=== PATIENT | female | born 2000 | race African-American/Black ===

== ENCOUNTER 2020-12-24 11:26 | Emergency (ER) | payer BC ==
[2020-12-24] MEDS ORDERED: HYDROmorphone 1 MG/ML Syringe IVPUSH ONE (11:43)
[2020-12-24] MEDS ORDERED: Sodium Chloride 0.9% 10 ML Syringe FLUSH PRN (11:43)
[2020-12-24] MEDS ORDERED: Lidocaine/EPINEPHrine/Tetracaine Soln 1 ML TOP ONE (11:55)
[2020-12-24] MEDS ORDERED: Lidocaine 1% with EPINEPHrine 1:100,000 10 ML MDV INJECT ONE (11:55)
--- NOTE | 2020-12-24 12:16 | EDM.PDOC ---
ED HPI GENERAL MEDICAL PROBLEM - General Chief Complaint: Skin Complaint Stated Complaint: MULTIPLE ABSCESSES IN ARM PIT Time Seen by Provider: 12/24/20 11:37 Source of Information: Reports: Patient History Limitations: Reports: No Limitations - History of Present Illness INITIAL COMMENTS - FREE TEXT/NARRATIVE: The patient presents with pain and swelling in the right axilla. This has been an issue before and she had to have some abscesses opened up. She feels she has another abscess. She has no fever or chills. She has sever pain with lifting her arm up. She has no other heal problems. 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 (see below) Other Treatments RIPSHEAR OPERATOR: hot showers Right Axillary Pain Score (Numeric/FACES): 10 - Related Data Allergies Allergy/AdvReac Type Severity Reaction Status Date / Time No Known Allergies Allergy Verified 12/24/20 11:43 Home Meds: Home Meds Hydrocodone/Acetaminophen [Hydrocodone-Acetamin 5-325 mg] 1 - 2 each PO Q6HR PRN #6 tablet 12/24/20 [Rx] cephALEXin [Keflex] 500 mg PO QID #40 cap 12/24/20 [Rx] Past Medical History - Past Health History Medical/Surgical History: Denies Medical/Surgical History Dermatologic History: Reports: Cellulitis Social & Family History - Family History Dermatologic: Reports: Other (See Below) Other Dermatologic Family History: reoccuring cellulitis - Tobacco Use Tobacco Use Status *Q: Never Tobacco User Second Hand Smoke Exposure: No - Caffeine Use Caffeine Use: Reports: Energy Drinks - Recreational Drug Use Recreational Drug Use: No ED ROS GENERAL - Review of Systems Review Of Systems: See Below Constitutional: Reports: No Symptoms HEENT: Reports: No Symptoms Respiratory: Reports: No Symptoms Cardiovascular: Reports: No Symptoms Endocrine: Reports: No Symptoms GI/Abdominal: Reports: No Symptoms : Reports: No Symptoms Musculoskeletal: Reports: Other (Abxcess to the rigth axilla) ED EXAM, SKIN/RASH Exam: See Below Exam Limited By: No Limitations General Appearance: Alert, No Apparent Distress Ears: Normal External Exam Nose: Normal Inspection Head: Atraumatic, Normocephalic Neck: Normal Inspection Respiratory/Chest: No Respiratory Distress, Lungs Clear, Normal Breath Sounds Cardiovascular: Regular Rate, Rhythm, No Edema, No Murmur GI/Abdominal: Soft, Non-Tender, No Organomegaly, No Mass Back Exam: Normal Inspection Extremities: Other (Edema and fluctuance to the right axilla and proximal arm. Good sensation and pulses distally.) ED SKIN PROCEDURES - I&D Site: Right axilla Skin Prep: Other (chlor prep) Local Anesthesia: Lidocaine: 1% with EPI (with LET) Local Anesthetic Volume: 2cc Area Incised With: 11 Blade Drainage: Purulent, Bloody, Large Amount Probed to Break Up Loculations: Yes Packed With: 1/2 in. Iodoform Complications: No Course - Vital Signs Last Recorded V/S: Last Vital Signs Temp 99.2 F 12/24/20 11:37 Pulse 103 H 12/24/20 11:37 Resp 18 12/24/20 11:37 BP 136/88 12/24/20 11:37 Pulse Ox 96 12/24/20 11:37 - Orders/Labs/Meds Orders: Active Orders 24 hr Category Date Time Status Peripheral IV Care [RC] . DIRECTED Care 12/24/20 11:43 Active Sodium Chloride 0.9% [Saline Flush] Med 12/24/20 11:43 Active 10 ml FLUSH ASDIRECTED PRN Peripheral IV Insertion Adult [OM.PC] Routine Oth 12/24/20 11:43 Ordered Medication Orders Sodium Chloride (Saline Flush) 10 ml FLUSH ASDIRECTED PRN PRN Reason: Keep Vein Open Last Admin: 12/24/20 12:08 Dose: 10 ml Documented by: ROSEANN Mejias: Medications Generic Name Dose Route Start Last Admin Trade Name Freq PRN Reason Stop Dose Admin Sodium Chloride 10 ml 12/24/20 11:43 12/24/20 12:08 Saline Flush FLUSH 10 ml ASDIRECTED PRN Administration Keep Vein Open Discontinued Medications Generic Name Dose Route Start Last Admin Trade Name Freq PRN Reason Stop Dose Admin Hydromorphone HCl 1 mg 12/24/20 11:43 12/24/20 12:04 Dilaudid IVPUSH 12/24/20 11:44 1 mg ONETIME ONE Administration Lidocaine/Epinephrine 10 ml 12/24/20 11:55 12/24/20 12:08 Xylocaine 1% With Epinephrine 1:100,000 INJECT 12/24/20 11:56 10 ml ONETIME ONE Administration Lidocaine/Tetracaine 1 ml 12/24/20 11:55 12/24/20 12:08 Let Soln TOP 12/24/20 11:56 1 ml ONETIME ONE Administration - Re-Assessments/Exams Free Text/Narrative Re-Assessment/Exam: 12/24/20 12:16 I ordered an IV saline lock and dilaudid 1mg IV. 12/24/20 13:01 I used LET and lidocaine with epinephrine to anaesthetise the wound and I drained it and got lots of purulent/bloody drainage. I then packed it. I will get her on some keflex and something for pain. Departure - Departure Time of Disposition: 13:10 Disposition: Home, Self-Care 01 Condition: Good Clinical Impression: Abscess of axilla, right, Hidradenitis suppurativa of right axilla - Discharge Information *PRESCRIPTION DRUG MONITORING PROGRAM REVIEWED*: No *COPY OF PRESCRIPTION DRUG MONITORING REPORT IN PATIENT JOSE: No Prescriptions: Hydrocodone/Acetaminophen [Hydrocodone-Acetamin 5-325 mg] 1 - 2 each PO Q6HR PRN #6 tablet PRN Reason: Pain cephALEXin [Keflex] 500 mg PO QID #40 cap Referrals: PCP,None [Primary Care Provider] - Comfort Greenberg MD [Physician] - 1 Week Forms: ED Department Discharge Additional Instructions: Take the keflex 4 times per day for 10 days. Take tylenol or motrin for pain. If that does not help, try the hydrocodone. Try to leave the packing in for 5 days. Follow up with Dr Greenberg next week to have it removed. If it falls out sooner that is fine. Clean the area with warm soapy water 2 times per day. Put warm compresses on the affected area 3 times per day for 5 days. Please return if you are worse. Sepsis Event Note (ED) - Evaluation Sepsis Screening Result: No Definite Risk - Focused Exam Vital Signs: Vital Signs Temp Pulse Resp BP Pulse Ox 12/24/20 11:37 99.2 F 103 H 18 136/88 96 - My Orders Last 24 Hours: My Active Orders 12/24/20 11:43 Peripheral IV Care [RC] . DIRECTED Sodium Chloride 0.9% [Saline Flush] 10 ml FLUSH ASDIRECTED PRN Peripheral IV Insertion Adult [OM.PC] Routine - Assessment/Plan Last 24 Hours: My Active Orders 12/24/20 11:43 Peripheral IV Care [RC] . DIRECTED Sodium Chloride 0.9% [Saline Flush] 10 ml FLUSH ASDIRECTED PRN Peripheral IV Insertion Adult [OM.PC] Routine
== END 2020-12-24 13:23 | disposition home or self-care (01) ==
LOC: JD.ED 11:26
DX: L02.411 Cutaneous abscess of right axilla (principal); L73.2 Hidradenitis suppurativa
CPT/HCPCS: 10061; 87075; 87076; 87077; 87181; 87186; 87205; 96374; 99283; J1170

== ENCOUNTER 2021-04-15 17:31 | Emergency (ER) | payer SELFPAY ==
[2021-04-15] MEDS ORDERED: Lidocaine/EPINEPHrine/Tetracaine Soln 1 ML TOP ONE (17:46)
[2021-04-15] MEDS ORDERED: Lidocaine 1% with EPINEPHrine 1:100,000 10 ML MDV INJECT ONE (17:46)
--- NOTE | 2021-04-15 18:36 | EDM.PDOC ---
ED HPI GENERAL MEDICAL PROBLEM - General Chief Complaint: Skin Complaint Stated Complaint: ABSCESS IN ARM PIT Time Seen by Provider: 04/15/21 17:38 Source of Information: Reports: Patient, RN Notes Reviewed History Limitations: Reports: No Limitations - History of Present Illness INITIAL COMMENTS - FREE TEXT/NARRATIVE: Patient is a 21-year-old female presenting to the emergency department with complaints of a painful abscess in her left armpit. She has a history of hidradenitis suppurativa and has required I&D of abscesses in the past. She reports that the swelling began about 4 days ago. It was significantly larger than it is today. She reports it has been draining purulent fluid. She feels that she may have been feverish but denies any chills, nausea, or vomiting. Vital signs in triage were found to be normal. Temperature 97 temporal, blood pulse 81, blood pressure 116/66, respiratory rate 16, oxygen 97% on room air. She has not followed up with a primary care provider since she was seen in December for a similar complaint. Left Axillary Pain Score (Numeric/FACES): 4 - Related Data Allergies Allergy/AdvReac Type Severity Reaction Status Date / Time No Known Allergies Allergy Verified 04/15/21 17:48 Home Meds: Home Meds cephALEXin [Cephalexin] 500 mg PO Q6H 10 Days #40 capsule 04/15/21 [Rx] Past Medical History - Past Health History Medical/Surgical History: Denies Medical/Surgical History Dermatologic History: Reports: Cellulitis Social & Family History - Family History Dermatologic: Reports: Other (See Below) Other Dermatologic Family History: reoccuring cellulitis - Tobacco Use Tobacco Use Status *Q: Never Tobacco User Second Hand Smoke Exposure: No - Caffeine Use Caffeine Use: Reports: Energy Drinks - Recreational Drug Use Recreational Drug Use: No ED ROS GENERAL - Review of Systems Review Of Systems: See Below Constitutional: Reports: No Symptoms. Denies: Fever, Chills HEENT: Reports: No Symptoms Respiratory: Reports: No Symptoms Cardiovascular: Reports: No Symptoms Endocrine: Reports: No Symptoms GI/Abdominal: Reports: No Symptoms. Denies: Nausea, Vomiting : Reports: No Symptoms Musculoskeletal: Reports: No Symptoms Skin: Reports: Other (painful bump in left axilla.) ED EXAM, SKIN/RASH Exam: See Below Exam Limited By: No Limitations General Appearance: Alert, WD/WN, No Apparent Distress Respiratory/Chest: No Respiratory Distress, Lungs Clear, Normal Breath Sounds, No Accessory Muscle Use, Chest Non-Tender Cardiovascular: Normal Peripheral Pulses, Regular Rate, Rhythm, No Edema, No Gallop, No JVD, No Murmur, No Rub Skin: Other (4 cm x 2 cm area of induration to the left armpit. There is a small open area which is draining purulent fluid.) ED SKIN PROCEDURES - I&D Site: left axilla Skin Prep: Providone-Iodine (Betadine) Local Anesthesia: Lidocaine: 1% with EPI Area Incised With: 11 Blade Drainage: Purulent Probed to Break Up Loculations: Yes Packed With: None Sterile Dressing: Other (ABD) Complications: No Progress/Comments: Very small amount of purulent fluid returned. Area did not require packing. Course - Vital Signs Last Recorded V/S: Last Vital Signs Temp 97 F 04/15/21 17:47 Pulse 81 04/15/21 17:47 Resp 16 04/15/21 17:47 BP 116/66 04/15/21 17:47 Pulse Ox 97 04/15/21 17:47 - Orders/Labs/Meds Meds: Medications Discontinued Medications Generic Name Dose Route Start Last Admin Trade Name Marty PRN Reason Stop Dose Admin Lidocaine/Epinephrine 10 ml 04/15/21 17:46 04/15/21 17:52 Lidocaine 1% With Epinephrine 1:100,000 10 Ml Mdv INJECT 04/15/21 17:47 10 ml ONETIME ONE Administration Lidocaine/Tetracaine 1 ml 04/15/21 17:46 04/15/21 17:52 Lidocaine/Epinephrine/Tetracaine Soln 1 Ml TOP 04/15/21 17:47 1 ml ONETIME ONE Administration - Re-Assessments/Exams Free Text/Narrative Re-Assessment/Exam: Patient is a 21-year-old female presenting to the ER with complaints of an abscess in her left armpit. On exam, there is a 4 cm x 2 cm area of induration. It is fairly firm and does have an open area draining a small amount of purulent fluid. She states it was quite a bit bigger than it is now. I have ordered let and lidocaine with epi and will plan to drain the area. 04/15/21 18:40 I&D was completed. Only a very small amount of purulent fluid was returned. I suspect fluid has already drained from the area given that it has been leaking fluid and she reports that it was significantly larger than it is now. We will start her on cephalexin. Recommend that she follow-up in the clinic towards the end of next week to have the area reevaluated to see if additional I&D is needed after antibiotic treatment. She is in agreement with this plan. Discharge instructions as documented. Departure - Departure Time of Disposition: 18:43 Disposition: Home, Self-Care 01 Condition: Good Clinical Impression: Hidradenitis suppurativa of right axilla - Discharge Information *PRESCRIPTION DRUG MONITORING PROGRAM REVIEWED*: No *COPY OF PRESCRIPTION DRUG MONITORING REPORT IN PATIENT JOSE: No Prescriptions: cephALEXin [Cephalexin] 500 mg PO Q6H 10 Days #40 capsule Instructions: Hidradenitis Suppurativa Referrals: Comfort Greenberg MD [Physician] - Forms: ED Department Discharge Additional Instructions: You were seen in the emergency department today for evaluation with regards to a painful, swollen area in your left axilla. A small amount of fluid was able to be drained from the area. Since there is an open area, I suspect that much of the fluid has already drained. You have been started on cephalexin which is an antibiotic. Take this medication as prescribed. Recommend applying a warm washcloth to the area numerous times daily. You may take ibuprofen 600 to 800 mg every 6 hours for discomfort. Follow-up in the clinic towards the end of next week to have the area reevaluated to see if would benefit from additional drainage at that time. A referral has been sent to Dr. Greenberg and the number to schedule with her as listed below. Return to ER for any new or worsening symptoms of concern. Sepsis Event Note (ED) - Evaluation Sepsis Screening Result: No Definite Risk
== END 2021-04-15 18:55 | disposition home or self-care (01) ==
LOC: JD.ED 17:31
DX: L73.2 Hidradenitis suppurativa (principal); L02.411 Cutaneous abscess of right axilla
CPT/HCPCS: 10060; 99283; 99283-25

== ENCOUNTER 2021-08-04 15:52 | Emergency (ER) | payer SELFPAY | END 2021-08-04 16:30 | disposition left against medical advice (07) | LOC: JD.ED 15:52 | DX: R06.02 Shortness of breath (principal); Z53.21 Procedure and treatment not carried out due to patient leaving prior to being seen by health care provider ==

== ENCOUNTER 2021-08-05 21:47 | Emergency (ER) | payer SELFPAY ==
--- NOTE | 2021-08-05 23:00 | EDM.PDOC ---
ED HPI GENERAL MEDICAL PROBLEM - General Chief Complaint: Respiratory Problem Stated Complaint: COVID+/CHEST PAIN/SOB Time Seen by Provider: 08/05/21 22:29 Source of Information: Reports: Patient History Limitations: Reports: No Limitations - History of Present Illness INITIAL COMMENTS - FREE TEXT/NARRATIVE: Ms Hollingsworth is a pleasant 21-year-old woman who states that she developed generalized body weakness, dyspnea, nausea, and vomiting on 07/28/2021. She tested positive for the SARS-CoV-2 virus on 07/30/2021, at the [place] walk-in clinic. She has been taking both acetaminophen and ibuprofen, which she states have not been helping. She now presents the ED stating that she has had a cough which induces both dyspnea and central chest pain, since 08/02/2021. The coughing sometimes induces her to vomit. She states that she feels dehydrated. No recent fever. The patient states that she has been checking her oxygen saturation at home, finding it to be 88 to 93%. Here in the ED, the patient is found to be tachycardic at 123 bpm, otherwise, she is hemodynamically stable, afebrile, saturating 93 to 94% on room air. Prior to last Saturday, the patient denies having a recent fever, chills, sore throat, ear pain, nasal or sinus congestion, cough, dyspnea, chest pain, palpitations, nausea, vomiting, constipation, diarrhea, abdominal pain, urinary symptoms, recent weight gain or weight loss, recent bloody bowel movements or black bowel movements, recent joint aches, headaches, or rashes. The patient does not have a PCP. She has not received a COVID vaccination and does not intend to. Middle Chest Pain Score (Numeric/FACES): 10 - Related Data Allergies Allergy/AdvReac Type Severity Reaction Status Date / Time No Known Allergies Allergy Verified 04/15/21 17:48 Home Meds: Home Meds . [No Known Home Meds] 08/05/21 [History] Past Medical History - Infectious Disease History Infectious Disease History: Reports: Novel Coronavirus (dx'd 07/30/2021) - Past Surgical History Female Surgical History: Reports: Section (x 1) Social & Family History - Tobacco Use Tobacco Use Status *Q: Never Tobacco User - Caffeine Use Caffeine Use: Reports: Soda, Tea - Alcohol Use Alcohol Use History: Yes Alcohol Use Frequency: Rarely - Recreational Drug Use Recreational Drug Use: No - Living Situation & Occupation Living situation: Reports: Single, with Family (Daughter) Occupation: Employed ([employer]) ED ROS GENERAL - Review of Systems Review Of Systems: Comprehensive ROS is negative, except as noted in HPI. ED EXAM, GENERAL - Physical Exam Exam: See Below Exam Limited By: No Limitations General Appearance: Alert, WD/WN, No Apparent Distress Eye Exam: Bilateral Eye: EOMI, Normal Inspection Ears: Normal External Exam, Hearing Grossly Normal Nose: Normal Inspection Throat/Mouth: Normal Inspection, Normal Lips, Normal Voice, No Airway Compromise Head: Atraumatic, Normocephalic Neck: Normal Inspection, Full Range of Motion Respiratory/Chest: No Respiratory Distress, Lungs Clear, Normal Breath Sounds, No Accessory Muscle Use. No: Decreased Breath Sounds, Crackles, Rhonchi, Whee zing, Stridor, Prolonged Expiration Cardiovascular: Normal Peripheral Pulses, No Edema, No Gallop, No JVD, No Murmur, No Rub, Tachycardia (regular) Peripheral Pulses: 3+: Radial (L), Radial (R) GI/Abdominal: Normal Bowel Sounds, Soft, Non-Tender, No Organomegaly, No Distention, No Abnormal Bruit, No Mass Back Exam: Normal Inspection, Full Range of Motion, NT Extremities: Normal Inspection, Normal Range of Motion, No Pedal Edema, Normal Capillary Refill Neurological: Alert, Oriented, Normal Cognition, No Motor/Sensory Deficits Psychiatric: Depressed Mood Skin Exam: Warm, Dry, Intact, Normal Color, No Rash Course - Vital Signs Last Recorded V/S: Last Vital Signs Temp 37.2 C 08/05/21 22:25 Pulse 123 H 08/05/21 22:25 Resp 20 08/05/21 22:25 BP 120/76 08/05/21 22:25 Pulse Ox 93 L 08/05/21 22:25 - Orders/Labs/Meds Labs: Laboratory Tests 08/05/21 08/05/21 Range/Units 23:25 23:25 WBC 4.59 (3.98-10.04) K/mm3 RBC 5.37 H (3.98-5.22) M/mm3 Hgb 15.1 (11.2-15.7) gm/dl Hct 46.1 H (34.1-44.9) % MCV 85.8 (79.4-94.8) fl MCH 28.1 (25.6-32.2) pg MCHC 32.8 (32.2-35.5) g/dl RDW Std Deviation 39.0 (36.4-46.3) fL Plt Count 152 L (182-369) K/mm3 MPV 11.0 (9.4-12.3) fl Neutrophils % (Manual) 82 H (40-60) % Band Neutrophils % 1 (0-10) % Lymphocytes % (Manual) 10 L (20-40) % Atypical Lymphs % 0 % Monocytes % (Manual) 7 (2-10) % Eosinophils % (Manual) 0 L (0.7-5.8) % Basophils % (Manual) 0 L (0.1-1.2) Platelet Estimate Decreased RBC Morph Comment Normal Sodium 136 (136-145) mEq/L Potassium 3.5 (3.5-5.1) mEq/L Chloride 99 (98-107) mEq/L Carbon Dioxide 24 (21-32) mEq/L Anion Gap 16.5 H (5-15) BUN 4 L (7-18) mg/dL Creatinine 0.8 (0.55-1.02) mg/dL Est Cr Clr Drug Dosing 91.24 mL/min Estimated GFR (MDRD) > 60 (>60) mL/min BUN/Creatinine Ratio 5.0 L (14-18) Glucose 104 H (70-99) mg/dL Calcium 8.3 L (8.5-10.1) mg/dL Magnesium 1.9 (1.8-2.4) mg/dL Total Bilirubin 0.4 (0.2-1.0) mg/dL AST 42 H (15-37) U/L ALT 62 H (14-59) U/L Alkaline Phosphatase 59 (46-116) U/L Total Protein 7.6 (6.4-8.2) g/dl Albumin 3.4 (3.4-5.0) g/dl Globulin 4.2 gm/dL Albumin/Globulin Ratio 0.8 L (1-2) Meds: Medications Discontinued Medications Generic Name Dose Route Start Last Admin Trade Name Freq PRN Reason Stop Dose Admin Diphenhydramine HCl 50 mg 08/05/21 23:05 Diphenhydramine 50 Mg/Ml Sdv IVPUSH ONETIME PRN hypersensitivity reaction Epinephrine HCl 0.3 mg 08/05/21 23:05 Epinephrine 1 Mg/Ml Sdv IM ONETIME PRN hypersensitivity reaction Famotidine 20 mg 08/05/21 23:05 Famotidine 20 Mg/2 Ml Sdv IVPUSH ONETIME PRN hypersensitivity reaction CASIRIVIMAB/IMDEVIMAB 10 ml/ 110 mls @ 220 mls/hr 08/05/21 23:05 08/05/21 23:56 Sodium Chloride IV 08/05/21 23:34 220 mls/hr ONETIME ONE Administration Sodium Chloride 1,000 mls @ 999 mls/hr 08/05/21 23:05 08/05/21 23:25 Normal Saline IV 08/06/21 00:05 999 mls/hr ONETIME ONE Administration Methylprednisolone Sodium Succinate 125 mg 08/05/21 23:05 Methylprednisolone Sodium Succinate 125 Mg/2 Ml Sdv IVPUSH ONETIME PRN hypersensitivity reaction Sodium Chloride 30 ml 08/05/21 23:15 Sodium Chloride 0.9% 10 Ml Syringe FLUSH ASDIRECTED CAR - Re-Assessments/Exams Free Text/Narrative Re-Assessment/Exam: 08/05/21 22:54 As above, the patient became symptomatic with generalized weakness, dyspnea, nausea, and vomiting last Saturday, then tested positive for COVID-19 this past Saturday. She developed a nonproductive cough on Saturday, which induces chest pain and dyspnea. She has been monitoring her oxygen saturation at home, and states that it has been between 88 to 93%, although it is 93 to 94% consistently here in the ED. Other than regular tachycardia, her physical exam is unremarkable. Based on the patient's BMI, she is a candidate for an infusion of the monoclonal antibody Regen-Cov. We discussed that at length, including that it is an emergency use authorization medication, intended to decrease the likelihood of patients diagnosed with COVID-19 from developing severe symptoms or , and that it does not treat her current symptoms. I explained that Regen-Cov is still under investigation, that it is not fully FDA approved, and that the potential benefits and risks of the medication are not fully known. The patient was notified that if she receives Regen-Cov, that it may decrease her immune response to a COVID vaccination, should she decide to get it after she recovers from her current illness, however, the patient stated that she does not plan on getting the vaccination. I explained that there is a possibility that she could have an allergic reaction either during or after the infusion, as well as brief pain, bleeding, bruising of the skin, soreness, swelling, and possible infection at the infusion site. Other side effects could occur. I discussed that there are other potential treatment options that are currently not FDA approved to treat COVID-19. The patient was notified that the infusion takes about 1 hour, after which she would be expected to remain in the ED for another hour to observe for possible side effects. She was offered the "patient and caregiver [facility] Regen-Cov fact sheet" to read and review. All questions were answered. The patient expressed understanding, but she stated that she would like to discuss the matter with her mother first. 08/05/21 23:04 The patient has elected to proceed with the infusion. 08/05/21 23:59 The patient CBC is remarkable for a Hct is elevated at 46.1, with a Hgb normal at 15.1, and thrombocytopenia 152,000, with remainder of her CBC being unremarkable. Her CMP is remarkable for slight hyperglycemia of 104, with an AST/ALT mildly elevated at 42/62, respectively, and the remainder of her CMP being unremarkable. Her magnesium level is within normal limits at 1.9. 08/06/21 01:54 Notified that the patient's Regen-Cov infusion finished 1 hour ago, and that there have not been any adverse reactions. She declined any prescriptions or note for work. I will discharge her home. Departure - Departure Time of Disposition: 01:56 Disposition: Home, Self-Care 01 Condition: Good Clinical Impression: COVID-19 - Discharge Information *PRESCRIPTION DRUG MONITORING PROGRAM REVIEWED*: Not Applicable *COPY OF PRESCRIPTION DRUG MONITORING REPORT IN PATIENT JOSE: Not Applicable Instructions: 10 Things You Can Do to Manage Your COVID-19 Symptoms at Home - [facility] (06/01/2020) Referrals: PCP,None [Primary Care Provider] - Forms: ED Department Discharge Additional Instructions: You were seen in the emergency room for generalized weakness, a cough, shortness of breath, central chest pain, nausea, and vomiting in the setting of being diagnosed with COVID-19 on 1 day, 07/30/2021. Work-up in the ER included several blood tests, all of which were unremarkable. You were treated with an infusion of the monoclonal antibodies Regen-Cov and IV fluid in the ER. As discussed, Regen-Cov is not a treatment for your current symptoms, but reduces the risk of you developing severe symptoms or associated with COVID-19. You may take [id number] ibuprofen as needed for discomfort. Stay adequately hydrated. As discussed, it is imperative that you strictly isolate until 10 days after your diagnosis. Be aware that some patients continue to shed the virus, and are therefore infectious, for longer than 10 days. Do not break isolation until/unless you test negative. If any other problems, please do not hesitate to return to the ER. Sepsis Event Note (ED) - Focused Exam Vital Signs: Vital Signs Temp Pulse Resp BP Pulse Ox 08/05/21 22:25 37.2 C 123 H 20 120/76 93 L
[2021-08-05] MEDS ORDERED: diphenhydrAMINE 50 MG/ML SDV IVPUSH PRN (23:05)
[2021-08-05] MEDS ORDERED: EPINEPHrine 1 MG/ML SDV IM PRN (23:05)
[2021-08-05] MEDS ORDERED: Sodium Chloride 0.9% 1,000 ML IV ONE (23:05)
[2021-08-05] MEDS ORDERED: Famotidine 20 MG/2 ML SDV IVPUSH PRN (23:05)
[2021-08-05] MEDS ORDERED: methylPREDNISolone Sodium Succinate 125 MG/2 ML SDV IVPUSH PRN (23:05)
[2021-08-05] MEDS ORDERED: Sodium Chloride 0.9% 10 ML Syringe FLUSH SCH (23:15)
== END 2021-08-06 02:08 | disposition home or self-care (01) ==
LOC: JD.ED 21:47
DX: U07.1 COVID-19 (principal)
CPT/HCPCS: 36415; 80053; 83735; 85007; 85027; 99284; J7030; M0243; Q0243

== ENCOUNTER 2022-01-18 10:42 | Emergency (ER) | payer SELFPAY | END 2022-01-18 13:38 | disposition home or self-care (01) | LOC: JD.ED 10:42 | DX: S62.647A Nondisplaced fracture of proximal phalanx of left little finger, initial encounter for closed fracture (principal); W23.0XXA Caught, crushed, jammed, or pinched between moving objects, initial encounter | CPT/HCPCS: 29130; 73140-26-F4; 73140-F4; 99283; 99283-25 ==

== ENCOUNTER 2022-07-20 15:46 | Emergency (ER) | payer SELFPAY ==
[2022-07-20] MEDS ORDERED: Lidocaine 1% with EPINEPHrine 1:100,000 20 ML MDV INJECT ONE (16:45)
== END 2022-07-20 17:40 | disposition home or self-care (01) ==
LOC: JD.ED 15:46
DX: L02.214 Cutaneous abscess of groin (principal); Z86.16 Personal history of COVID-19
CPT/HCPCS: 10060; 87070; 87075; 87205; 99283

== ENCOUNTER 2022-09-16 09:24 | Emergency (ER) | payer SELFPAY ==
[2022-09-16] MEDS ORDERED: Lidocaine 1% with EPINEPHrine 1:100,000 20 ML MDV INJECT ONE (11:15)
[2022-09-16] MEDS ORDERED: Lidocaine 1% 10 ML MDV INJECT ONE (11:39)
== END 2022-09-16 12:38 | disposition home or self-care (01) ==
LOC: JD.ED 09:24
DX: L02.214 Cutaneous abscess of groin (principal)
CPT/HCPCS: 10060; 96372; 99282; 99282-25